=== PATIENT | female | born 1990 | race Caucasian/White ===

== ENCOUNTER 2020-04-17 10:02 | Inpatient (IN) | payer BC ==
--- NOTE | ~2020-04-17 | OR ---
[facility] [address], [place] [address] Draft DATE OF OPERATION: SURGEON: Jazmin Pompa DO PREOPERATIVE DIAGNOSES: 1. History of prior . 2. History of labor x2, status post cerclage. 3. Term . POSTOPERATIVE DIAGNOSES: 1. History of prior . 2. History of labor x2, status post cerclage. 3. Term . 4. Uterine rupture, asymptomatic. PROCEDURE PERFORMED: 1. Repeat delivery through ruptured with repair of uterine rupture. 2. Cerclage removal. ANESTHESIA: Spinal. ESTIMATED BLOOD LOSS: 400 mL. PIPELINE GANG SUPERVISOR: Yazan Carrasco MD. COMPLICATIONS: Asymptomatic uterine rupture. FINDINGS: Normal external genitalia, vagina, and cervix, status post cerclage. Clots were removed without difficulty and cervix remains normal in appearance. Upon entry into the abdominal cavity, the uterus was noted to be ruptured approximately 8 cm in diameter by 10 cm in length at the prior scar where her J incision had been performed. The placenta and amniotic sac were bulging through the rupture where hemostasis was appreciated. Normal tubes and ovaries bilaterally. The uterine rupture was reapproximated in three layers with excellent reapproximation. Patient and her were counseled inoperatively with a high risk of uterine rupture and recommended. PATIENT NAME: GALA OG OPERATIVE REPORT DATE OF : 86 REPORT #: [id number] PHYSICIAN: JAZMIN POMPA DO PCP: BRENT ESPINAL MD REPORT IS CONFIDENTIAL AND NOT TO BE RELEASED WITHOUT AUTHORIZATION [facility] [address], [place] [address] Draft INDICATIONS: Ms. Og is a very pleasant 30-year-old, G3, P 0-2-0-2 white female, who presents for cerclage removal and repeat low transverse delivery. was complicated by history of labor x2, history of prior with J incision, history of thyroid disease and Rh negative status. She was diagnosed with cervical insufficiency at 26 weeks and transferred emergently to [facility] in [place] where Maternal- Medicine recommended and placed a Oshea cerclage. The patient has been on modified bedrest since with no evidence of labor. Risks, benefits, and alternatives were discussed in detail with the patient. The patient understands and wishes to proceed with the procedure. TECHNIQUE: The patient was taken to the operating room where a time-out was performed to confirm correct patient and correct procedure. Spinal anesthesia was adequately established. The patient was prepped and draped in the dorsal lithotomy position with feet in Yellofin stirrups. ICPs were on and running, Ancef 2 g preoperatively were administered, and no heparin was indicated. A weighted speculum was placed in vagina and the anterior lip of the cervix was evaluated and Oshea cerclage noted in place. The Oshea cerclage was grasped with uterine packing forceps, elevated and the knot dissected from the underlying cervical tissue. The knot was easily cut and the entire Oshea cerclage was removed intact without complication. The cervix remained normal in appearance. Blood loss was minimal. A Luque catheter was then inserted and the patient was prepped and draped in the supine position with a bump under the right hip. After ensuring that the spinal anesthetic was adequate, a Pfannenstiel skin incision was made and carried down to the fascia. Fascia was nicked in the midline and fascial incision was extended bilaterally using sharp dissection. Fascia was grasped, elevated and the underlying rectus muscle dissected off bluntly and sharply. The rectus muscles were then divided in the midline. The peritoneum was grasped with hemostats, elevated sharply. The peritoneal incision was extended bilaterally using blunt dissection. Upon entry into the abdominal cavity, uterine rupture was noted. It was on the left mid to fundal portion side of the uterus where her prior J extension scar was present. It was hemostatic and approximately 8 cm in length by 10 cm in height. Placenta and uterine membranes were bulging through and no overlying serosa was noted. Findings were reviewed with the patient and her at this time. The bandage scissors were used to gently extend the uterine rupture and amniotic sac was ruptured. The head was elevated in the abdomen, delivered with the assistance of fundal pressure without any difficulty. was vigorous, cried, and cord was doubly clamped and cut and the handed to the waiting pediatric team for further care. Cord blood was obtained for routine analysis. The placenta was gently teased from the myometrium with careful attention to evaluate for any abnormal placentation. Normal placentation was appreciated and the placenta delivered spontaneously. Excellent hemostasis was appreciated and Pitocin was given per protocol. The uterus was cleared of any remaining PATIENT NAME: GALA OG OPERATIVE REPORT DATE OF : 86 REPORT #: [id number] PHYSICIAN: JAZMIN POMPA DO PCP: BRENT ESPINAL MD REPORT IS CONFIDENTIAL AND NOT TO BE RELEASED WITHOUT AUTHORIZATION [facility] [address] [place] [id number] Draft products of conception or clot. Careful evaluation of the uterine rupture was again performed that demonstrated clean edges with apparent scar tissue from the prior J incision. This was then reapproximated in three layers using Monocryl. The 1st layer was locking and the other two layers were baseball stitch. Excellent reapproximation of the myometrium was noted and excellent hemostasis was appreciated. I discussed the intraoperative findings with the patient and recommended against future . The Matheus self retractor was removed and the pelvis irrigated and found to be hemostatic. Normal tubes and ovaries bilaterally. ACell sheet was applied to the uterine scar and the peritoneum was reapproximated with 2-0 Vicryl in a running nonlocked manner. The rectus was found to be hemostatic and was reapproximated using 0 Vicryl in a simple interrupted sutures. ACell powder was applied to the rectus sheath. The fascia was reapproximated using 0 Vicryl in a running manner. Subcu was examined, found to be hemostatic after judicious use of Bovie electrocautery. The skin was then reapproximated using Quill suture in a subcuticular manner with excellent hemostasis and cosmesis. The uterus was Crede'd for scant blood. The patient was taken to PACU in good and stable condition. Sponge, needle and instrument count were correct x2 at the end of the procedure. I reviewed preoperative symptoms with the patient and she reports that the day prior, she felt some slight increased tenderness and a tearing sensation that was not associated with contractions. She felt these likely represented [place] contractions. Dr. Carrasco was present and participated in all portions of the procedure. DO YEIMY Squires/JOSE G /[id number] Copies: ~ PATIENT NAME: GALA OG OPERATIVE REPORT DATE OF : 86 REPORT #: [id number] PHYSICIAN: JAZMIN POMPA DO PCP: BRENT ESPINAL MD REPORT IS CONFIDENTIAL AND NOT TO BE RELEASED WITHOUT AUTHORIZATION
[~2020-04-17 10:02] MED LIST: CALCIUM500 MG PO; PRENATAL 19 TA1 EAC1 PO
--- NOTE | 2020-04-18 09:22 | NUR ---
04/18/20 0922 Brenda Breaux 0918 PATIENT ARRIVES TO ROOM AWAKE. DENIES PAIN OR NAUSEA. RESP EVEN AND UNLABORED, ROOM AIR SATS >95%. BABY AT BEDSIDE WITH FATHER.
--- NOTE | 2020-04-19 10:46 | PR ---
[facility] [address] [facility] [place], [place] [address] Signed PP Progress Notes Datetime Report Generated by CPN: 04/19/2020 08:14 SUBJECTIVE: [id number] Pain: Within Normal Limits Nausea/Vomiting: Denies Flatus: No Bowel Movement: No Vital Signs: [id number] Vital Signs: Reviewed Notable Details: Low BP overnight without tachycardia EXAM: Ongoing Cardiovascular: Normal Respiratory: Normal Abdomen/Uterus: Normal Lochia: Normal Extremities: Normal IMPRESSION/PLAN/PROCEDURES: [id number] Impression: Normal Progression Plan: Continue Present Management Procedures: None Progress Notes: POD#1 s/p RLTCS @ 36 weeks -Uterine rupture with three layer uterine closure -Normal postop pain, encouraged scheduled percocet today to get ahead of pain -Luque out at 0600, awaiting spontaneous void Signing Physician: Carol Lord DO Copies: ~ *Electronically Signed* 04/19/20813 CAROL LORD DO PATIENT NAME: GALA OG PROGRESS NOTE DATE OF : 86 PHYSICIAN: CAROL LORD DO [facility] #: [id number] REPORT IS CONFIDENTIAL AND NOT TO BE RELEASED WITHOUT AUTHORIZATION
--- NOTE | 2020-04-20 12:10 | PR ---
[facility] [address] [facility] [place], [place] [address] Signed PP Progress Notes Datetime Report Generated by CPN: 04/20/2020 12:09 SUBJECTIVE: [id number] Pain: Within Normal Limits Nausea/Vomiting: Denies Flatus: Yes Bowel Movement: No Vital Signs: [id number] Vital Signs: Reviewed; Within Normal Limits Notable Details: Low BP overnight without tachycardia EXAM: Ongoing Cardiovascular: Normal Respiratory: Normal Abdomen/Uterus: Normal Lochia: Normal Extremities: Normal Incision: Normal Progress: Normal Exam Comments: RRR CTAB fundus firm below U Incision c/d/i IMPRESSION/PLAN/PROCEDURES: [id number] Impression: Normal Progression Plan: Continue Present Management; Discharge Procedures: None Progress Notes: POD#2 s/p RLTCS, h/o J incision, with three layer closure at 36 weeks gestation -progressing well -milestones met -desires DC to home today Signing Physician: Carol Lord DO Copies: ~ *Electronically Signed* 04/20/20 1207 CAROL LORD DO PATIENT NAME: LUDINJULITAGALA PROGRESS NOTE DATE OF : 86 PHYSICIAN: CAROL LORD DO RPT #: [id number] REPORT IS CONFIDENTIAL AND NOT TO BE RELEASED WITHOUT AUTHORIZATION
== END 2020-04-20 12:32 | disposition home or self-care (01) | DRG 786 ==
LOC: FBC 04-18 05:23
PROVIDERS: ADMIT Obstetrics & Gynecology; ATTEND Obstetrics & Gynecology
PROC: 3E0T3BZ Introduction of Anesthetic Agent into Peripheral Nerves and Plexi, Percutaneous Approach (ICD-10-PCS; 2020-04-18)
PROC: 3E0T33Z Introduction of Anti-inflammatory into Peripheral Nerves and Plexi, Percutaneous Approach (ICD-10-PCS; 2020-04-18)
PROC: 10D00Z1 Extraction of Products of Conception, Low, Open Approach (ICD-10-PCS; principal; 2020-04-18 06:45)
PROC: 0UCC7ZZ Extirpation of Matter from Cervix, Via Natural or Artificial Opening (ICD-10-PCS; 2020-04-18 06:45)
DX: O34.211 Maternal care for low transverse scar from previous cesarean delivery (principal); O60.13X0 Preterm labor second trimester with preterm delivery third trimester, not applicable or unspecified; O99.355 Diseases of the nervous system complicating the puerperium; N85.8 Other specified noninflammatory disorders of uterus; Z3A.36 36 weeks gestation of pregnancy; Z37.0 Single live birth; O90.0 Disruption of cesarean delivery wound; G89.18 Other acute postprocedural pain; O76 Abnormality in fetal heart rate and rhythm complicating labor and delivery; O99.284 Endocrine, nutritional and metabolic diseases complicating childbirth; E05.90 Thyrotoxicosis, unspecified without thyrotoxic crisis or storm; O99.344 Other mental disorders complicating childbirth; F32.9 Major depressive disorder, single episode, unspecified; F41.9 Anxiety disorder, unspecified; F98.8 Other specified behavioral and emotional disorders with onset usually occurring in childhood and adolescence; Z88.5 Allergy status to narcotic agent; Z87.440 Personal history of urinary (tract) infections; Z88.8 Allergy status to other drugs, medicaments and biological substances
CPT/HCPCS: 36415; 76942; 83030; 85027; 86850; 86870; 86900; 86901; A9270; J0690; J1100; J1200; J2001; J2274; J2370; J2405; J2550; J2590; J2790; J2795; J3010; J7121